=== PATIENT | female | born 1970 | race Caucasian/White ===

== ENCOUNTER 2019-03-21 17:15 | Emergency (ER) | payer SELFPAY ==
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
== END 2019-03-21 19:10 | disposition left against medical advice (07) ==
LOC: ER 17:15
DX: G50.1 Atypical facial pain (principal)
CPT/HCPCS: 99282

== ENCOUNTER 2019-09-28 11:57 | Emergency (ER) | payer MEDICAID ==
[2019-09-28 13:51] LABS: INFLUENZA A POSITIVE (NEGATIVE); INFLUENZA B NEGATIVE (NEGATIVE); STREP A SCREEN NEGATIVE (NEGATIVE)
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
== END 2019-09-28 15:07 | disposition home or self-care (01) ==
LOC: ER 11:57
DX: J10.1 Influenza due to other identified influenza virus with other respiratory manifestations (principal); F17.210 Nicotine dependence, cigarettes, uncomplicated
CPT/HCPCS: 87400; 87880; 99283